=== PATIENT | male | born 1955 | race Caucasian/White ===

== ENCOUNTER → 2019-11-17 07:34 | Outpatient (CLI) | payer OTHER, SELFPAY ==
[2019-11-17 08:58] LABS: Chol/HDL Ratio 6.3 (1-3.5); Cholesterol 120 mg/dl (140-200); HDL Cholesterol 19 mg/dl (40-60); Triglycerides 246 mg/dl (30-150); VLDL Cholesterol 49 mg/dL (0-40)
[2019-11-17 09:09] LABS: Direct LDL Cholesterol 70.54 mg/dL (100-129)
[2019-11-18 05:16] LABS: Creatinine, Urine 121.9 mg/dL (Not Estab.); Microalbumin, Urine 18.5 ug/mL (Not Estab.)
[2019-11-18 17:47] LABS: Chloride 105 mmol/L (98-107); Sodium 138 mmol/L (136-145)
[2019-11-18 17:50] LABS: Blood Urea Nitrogen 17 mg/dl (9-20); Estimated Glomerular Filt Rate 97 ml/min (>60); GFR (African American) 117 ML/MIN (>60)
[2019-11-18 17:51] LABS: Carbon Dioxide 26 mmol/L (22.0-30.0); Glucose 193 mg/dl (74-100)
== END ==
PROVIDERS: Visit Provider Family Medicine
DX: I10 Essential (primary) hypertension (principal); M10.9 Gout, unspecified
CPT/HCPCS: 36415; 80048; 80061; 82043; 82570; 84443; 84550

== ENCOUNTER → 2019-11-22 14:31 | Outpatient (CLI) | payer MEDICARE, SELFPAY ==
[2019-11-24 10:00] LABS: PSA, Free 1.51 ng/mL
== END ==
PROVIDERS: Visit Provider Urology
DX: N40.0 Benign prostatic hyperplasia without lower urinary tract symptoms (principal)
CPT/HCPCS: 36415; 84153; 84154

== ENCOUNTER → 2019-11-29 07:07 | Outpatient (CLI) | payer MEDICARE, SELFPAY ==
[2019-11-29 08:06] LABS: Glucose,Random 186 mg/dL (74-100)
[2019-11-29 08:37] LABS: Hemoglobin A1C 7.8 % (4.0-6.0)
== END ==
PROVIDERS: Visit Provider Family Medicine
DX: R73.9 Hyperglycemia, unspecified (principal)
CPT/HCPCS: 36415; 82947; 83036

== ENCOUNTER → 2020-11-27 13:31 | Outpatient (CLI) | payer MEDICARE, SELFPAY ==
[2020-11-29 08:15] LABS: Prostate Specific Ag 3.9 ng/mL (0.0-4.0)
== END ==
PROVIDERS: Visit Provider Urology
DX: R97.20 Elevated prostate specific antigen [PSA] (principal)
CPT/HCPCS: 36415; 84153; 84154

== ENCOUNTER → 2021-04-29 14:30 | Outpatient (CLI) | payer MEDICARE, SELFPAY ==
[2021-04-29 14:59] LABS: Basophils # 0.1 K/mm3 (0-0.2); Basophils % 0.9 % (0.1-2.0); Eosinophils # 0.1 K/mm3 (0.0-0.4); Eosinophils % 1.3 % (0.1-12.0); Lymphocytes # 1.1 K/mm3 (0.7-4.5); Lymphocytes % 15.9 % (10-50); Mean Corpuscular HGB Conc 31.8 g/dL (31.8-35.4); Mean Corpuscular Hemoglobin 28.4 pg (27.0-31.2); Mean Corpuscular Volume 89.4 fl (80-94); Monocytes # 0.4 K/mm3 (0.1-1.0); Neutrophils # 5.3 K/mm3 (1.8-7.8); Neutrophils % 75.9 % (37.0-80.0); Platelet Count 201 K/mm3 (142-424); Red Blood Count 4.59 M/mm3 (4.60-6.20); Red Cell Distribution Width 16.9 % (11.5-17.5)
== END ==
PROVIDERS: Visit Provider Family Medicine
DX: Z20.822 Contact with and (suspected) exposure to COVID-19 (principal)
CPT/HCPCS: 36415; 85025; C9803; U0003; U0005

== ENCOUNTER 2021-05-25 13:55 | Emergency (ER) | payer MEDICARE, SELFPAY ==
[2021-05-25 14:15] VITALS: BP 148/88; PULSE 76; RESP 19; TEMP 36.8; O2SAT 98; BMI 29.5
--- NOTE | 2021-05-25 14:58 | HMH.EDUTC ---
[facility] [place] Disposition Clinical Impression: Sinusitis Qualifiers: Sinusitis location: unspecified location Chronicity: unspecified Qualified Code(s): J32.9 - Chronic sinusitis, unspecified Disposition: Home, Self-Care Condition on Discharge: Good Instructions: Sinusitis, DI for Sinusitis, Azithromycin Additional Instructions: *Monitor Temp, Over the counter Motrin or Tylenol as directed/as needed Tylenol every 4 hours and Motrin every 6 hours (as long as your family doctor has told you that you can take it) for fever or pain. and straight to ER if unable to lower temp less than 101.0 after medication given *Warm salt water gargles may help to soothe the throat *Throat Lozenges *Warm fluids like tea with honey may help to soothe the throat *Sleep elevated *Humidifier/Vaporizer *Flonase 2 sprays in each nostril daily but be aware that it may take 2-3 days before you notice improvement Take medication as prescribed Follow up IMMEDIATELY for new or worsening symptoms or no Noticeable improvement over the next 48-72 hours. 911 for difficulty breathing or swallowing Prescriptions: Fluticasone Propionate [Flonase 50mcg nasal spray 16gm] 1 spr NS DAILY #1 each Transmission Status: Received by [facility] # Azithromycin [Z-Dieudonne 250mg Tab] 250 mg PO DIRECTED #6 tab Transmission Status: Received by [facility] # Referrals: Toby Marcos MD [Primary Care Provider] - As needed Time of Disposition: 15:25 Medical Decision Making - Salazar Inquiry Pt receiving controlled substance: No Salazar was queried for this patient: No Vital Signs: 05/25/21 14:15 05/25/21 15:36 Temperature 98.3 F 98.3 F Temperature Source Oral Pulse Rate 76 Pulse Rate [Right Brachial] 76 Respiratory Rate 19 19 Blood Pressure 148/88 H Blood Pressure [Right Arm] 148/88 H Blood Pressure Mean [Right Arm] 108 Blood Pressure Source [Right Arm] Automatic Cuff Blood Pressure Position [Right Arm] Sitting 02 Sat by Pulse Oximetry 98 Oxygen Delivery Method Room Air Orders (Tests/Meds): ED MEDICATIONS Discontinued Medications Generic Name Dose Route Start Last Admin Trade Name Freq PRN Reason Stop Dose Admin Methylprednisolone Sodium Succinate 125 mg 05/25/21 15:21 05/25/21 15:35 Methylprednisolone Sod Succ 125mg Vial IM 05/25/21 15:22 125 mg ONCE ONE Administration Medical Decision Narrative: Patient state that he has taken Solu Medrol and azithromycin in the past without complications or reactions Patient state that he was put on Cefdinir by his PCP back about 3 weeks ago an he finished it but still having some sinus pressure and pain that has got worse over the last week [facility] [place] HPI - General Stated complaint: drainage, congestion Time Seen by Provider: 05/25/21 14:58 Mode of Arrival: Ambulatory Source of Information: Patient Limitations: No Limitations Description of Symptoms (Recalled from Triage Doc. by RN): PATIENT C/O SINUS PRESSURE, SCRATCHY THROAT AND COUGH X 3 WEEKS HEENT Symptoms (Recalled from RN notes): Yes Resp Symptoms (Recalled from RN notes): No Skin Symptoms (Recalled from RN notes): No MS Symptoms (Recalled from RN notes): No Functional Status (Recalled from RN notes): WNL - History of Present Illness Provider Complaint: Patient states that he has been having sinus pain and pressure along with cough for about 2 weeks States that he saw his PCP and they give him something but it did not clear it up States that it did help but then it returned as bad as it was in the beginning - Related Data Home Medications Medication Instructions Recorded Confirmed allopurinol 300 mg tablet 300 mg PO DAILY 11/22/19 05/25/21 losartan 100 mg tablet 100 mg PO DAILY 11/22/19 05/25/21 omeprazole 40 mg capsule,delayed 40 mg PO DAILY 11/22/19 05/25/21 release Pioglitazone HCl [Actos] 30 mg PO DAILY 05/25/21 05/25/21 Previous Rx's Medication Instructions Recorded Azithromycin
[2021-05-25 15:36] VITALS: BP 148/88; PULSE 76; RESP 19; TEMP 36.8; O2SAT 98
== END 2021-05-25 15:47 | disposition home or self-care (01) ==
PROVIDERS: Emergency Provider Nurse Practitioner; PCP Family Medicine
DX: J32.9 Chronic sinusitis, unspecified (principal); E11.9 Type 2 diabetes mellitus without complications
CPT/HCPCS: G0463; 96372; 99202

== ENCOUNTER 2021-07-29 18:57 | Emergency (ER) | payer MEDICARE, SELFPAY ==
[2021-07-29 19:50] VITALS: BP 141/86; PULSE 74; RESP 18; TEMP 37.1; O2SAT 98; BMI 33.6
--- NOTE | 2021-07-29 20:23 | HMH.EDUTC ---
[facility] [place] Disposition Clinical Impression: Sinusitis Qualifiers: Sinusitis location: unspecified location Chronicity: unspecified Qualified Code(s): J32.9 - Chronic sinusitis, unspecified Disposition: Home, Self-Care Condition on Discharge: Good Instructions: Sinusitis, DI for Sinusitis Additional Instructions: *Monitor Temp, Over the counter Motrin or Tylenol as directed/as needed Tylenol every 4 hours and Motrin every 6 hours (as long as your family doctor has told you that you can take it) for fever or pain. and straight to ER if unable to lower temp less than 101.0 after medication given *Warm salt water gargles may help to soothe the throat *Throat Lozenges *Warm fluids like tea with honey may help to soothe the throat *Sleep elevated *Humidifier/Vaporizer *Flonase 2 sprays in each nostril daily but be aware that it may take 2-3 days before you notice improvement Take medication as prescribed Follow up with Family Doctor if no improvement Follow up IMMEDIATELY for new or worsening symptoms or no Noticeable improvement over the next 48-72 hours. 911 for difficulty breathing or swallowing Prescriptions: Fluticasone Propionate [Flonase 50mcg nasal spray 16gm] 1 spr NS DAILY #1 each Transmission Status: Pending to [id number] Azithromycin [Z-Dieudonne 250mg Tab] 250 mg PO DIRECTED #6 tab Transmission Status: [id number] Referrals: Toby Marcos MD [Primary Care Provider] - As needed Time of Disposition: 20:45 Medical Decision Making - Salazar Inquiry Pt receiving controlled substance: No Salazar was queried for this patient: No Vital Signs: 07/29/21 19:50 07/29/21 20:40 Temperature 98.8 F 98.8 F Temperature Source Oral Pulse Rate 74 Pulse Rate [Right Brachial] 74 Respiratory Rate 18 18 Blood Pressure 141/86 H Blood Pressure [Right Arm] 141/86 H Blood Pressure Mean [Right Arm] 104 Blood Pressure Source [Right Arm] Automatic Cuff Blood Pressure Position [Right Arm] Sitting 02 Sat by Pulse Oximetry 98 Oxygen Delivery Method Room Air Orders (Tests/Meds): ED MEDICATIONS Discontinued Medications Generic Name Dose Route Start Last Admin Trade Name Freq PRN Reason Stop Dose Admin Methylprednisolone Sodium Succinate 125 mg 07/29/21 20:26 07/29/21 20:39 Methylprednisolone Sod Succ 125mg Vial IM 07/29/21 20:27 125 mg ONCE ONE Administration [facility] [place] HPI - General Stated complaint: sinus infection, R ear ache, itchy throat Time Seen by Provider: 07/29/21 20:23 Mode of Arrival: Ambulatory Source of Information: Patient Limitations: No Limitations Description of Symptoms (Recalled from Triage Doc. by RN): PATIENT C/O SINUS PRESSURE AND RIGHT EAR PAIN X 1 WEEK HEENT Symptoms (Recalled from RN notes): Yes Resp Symptoms (Recalled from RN notes): No Skin Symptoms (Recalled from RN notes): No MS Symptoms (Recalled from RN notes): No Functional Status (Recalled from RN notes): WNL - History of Present Illness Provider Complaint: Patient states that he has been having sinus pain and pressure for over a week and pain in his right ear States that as the week went on it continued to get worse States that today he was having pressure behind his eyes and pressure in sinuses was worse so he came in to get checked Denies exposure to COVID - Related Data Home Medications Medication Instructions Recorded Confirmed allopurinol 300 mg tablet 300 mg PO DAILY 11/22/19 07/29/21 losartan 100 mg tablet 100 mg PO DAILY 11/22/19 07/29/21 omeprazole 40 mg capsule,delayed 40 mg PO DAILY 11/22/19 07/29/21 release Pioglitazone HCl [Actos] 30 mg PO DAILY 05/25/21 07/29/21 Previous Rx's Medication Instructions Recorded Azithromycin [Z-Dieudonne 250mg Tab] 250 mg PO DIRECTED #6 tab 07/29/21 Fluticasone Propionate [Flonase 1 spr NS DAILY #1 each 07/29/21 50mcg nasal spray 16gm] Allergies Allergy/AdvReac Type Severity Reaction Status Date / Time No Known
[2021-07-29 20:40] VITALS: BP 141/86; PULSE 74; RESP 18; TEMP 37.1; O2SAT 98
== END 2021-07-29 20:59 | disposition home or self-care (01) ==
PROVIDERS: Emergency Provider Nurse Practitioner; PCP Family Medicine
DX: J32.9 Chronic sinusitis, unspecified (principal); E11.9 Type 2 diabetes mellitus without complications
CPT/HCPCS: G0463; 96372; 99202

== ENCOUNTER → 2021-12-25 07:24 | Outpatient (CLI) | payer MEDICARE, SELFPAY ==
[2021-12-25 09:35] LABS: Alanine Aminotransferase 50 U/L (12-78); Albumin Level 4.3 g/dl (3.5-5.0); Albumin/Globulin Ratio 1.7 (1.1-1.8); Alkaline Phosphatase 78 U/L (38-126); Anion Gap 12.6 mEq/L (5-15); Aspartate Amino Transferase 52 U/L (17-59); Bilirubin,Total 0.9 mg/dl (0.2-1.3); Blood Urea Nitrogen 21 mg/dl (9-20); Calcium 9.5 mg/dl (8.4-10.2); Carbon Dioxide 28 mmol/L (22.0-30.0); Chloride 106 mmol/L (98-107); Chol/HDL Ratio 7.7 (1-3.5); Cholesterol 147 mg/dl (140-200); Estimated Glomerular Filt Rate 84 ml/min (>60); GFR (African American) 102 ML/MIN (>60); Globulin 2.6 g/dL (1.3-3.2); Glucose 147 mg/dl (74-100); HDL Cholesterol 19 mg/dl (40-60); Potassium 4.6 mmoL/L (3.5-5.1); Sodium 142 mmol/L (136-145); Total Protein,Serum 6.9 g/dl (6.3-8.2); Triglycerides 190 mg/dl (30-150); Uric Acid 4.9 mg/dl (3.5-8.5); VLDL Cholesterol 38 mg/dL (0-40)
[2021-12-25 09:45] LABS: Direct LDL Cholesterol 69.99 mg/dL (100-129)
== END ==
PROVIDERS: PCP Family Medicine; Visit Provider Family Medicine
DX: E11.9 Type 2 diabetes mellitus without complications (principal); I10 Essential (primary) hypertension; E79.0 Hyperuricemia without signs of inflammatory arthritis and tophaceous disease
CPT/HCPCS: 36415; 80053; 80061; 82043; 83036; 84550

== ENCOUNTER → 2021-12-31 19:07 | Outpatient (CLI) | payer MEDICARE, SELFPAY | PROVIDERS: PCP Family Medicine; Visit Provider Internal Medicine Gastroenterology | DX: Z01.812 Encounter for preprocedural laboratory examination (principal); Z20.822 Contact with and (suspected) exposure to COVID-19; Z12.11 Encounter for screening for malignant neoplasm of colon | CPT/HCPCS: C9803; U0003; U0005 ==

== ENCOUNTER 2022-01-02 09:50 | Day surgery (SDC) | payer MEDICARE, SELFPAY ==
[2022-01-02 10:33] VITALS: BP 153/89; PULSE 62; RESP 17; TEMP 36.8; O2SAT 94; BMI 29.5
[2022-01-02 10:43] LABS: POC Glucose,Bedside 144 (70-110)
[2022-01-02 10:53] VITALS: O2SAT 94
--- NOTE | 2022-01-02 10:53 | P.PN_ITS ---
[facility] Anesthesia Checklist - Patient Identification Patient Identification: Arm Band - Structural Data Admitted From: Home Planned Operative Procedure/s: colonoscopy Consent for Planned Operative Procedure(s) Verified: Yes Verified Documents: Surgical Consent, History and Physical - NPO Status Verified Time NPO: 00:00 - Additional verifications Anesthesia Reactions: No - Airway Assessment C-Spine Mobility Assessed: Yes (mp2) TMJ Mobility Assessed: Yes Dentition: Good Dentition - Neurological Assessment Level of Consciousness: Awake, Alert - Anesthesia Plan Anesthesia Risk discussed: Yes Anesthesia Plan: Verified ASA Class: II Anesthesia Type: MAC [facility] History I have reviewed the patient's past medical history: Yes 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: Reports:: Cancer, Diabetes Mellitus Type 2, Gall Bladder Disease, Hyperlipidemia, Hypertension Denies:: Diabetes Mellitus Type 1, Internal Pacemaker, MRSA, Seizures *Have you ever received a pneumonia vaccine?: Yes *Have you received a flu vaccine this season?: Yes Anesthesia experience/problems:: nac Other Surgeries: Yes: Appendectomy, Other. No: Pacemaker Amputation: No Fractures: No - *Social History Last grade of school completed: Advanced degree Smoking Status: Never smoker Alcohol Intake: never Alcohol Intake Frequency:: a few times a month Substance Use Type: denies use *Occupational Status:: retired Housing: house Household Members: significant other *Travel in the last 8 weeks: Inside the [place] Family Hx:: Cancer, Hyperlipidemia, Hypertension, Coronary Artery Disease
[2022-01-02 11:08] VITALS: BP 122/68; PULSE 58; RESP 18; TEMP 36.6; O2SAT 92
--- NOTE | 2022-01-02 11:08 | HMH.SCOPE ---
- Procedure: Date: 01/02/22 Patient Date of :: 1955 Procedure Performed:: Screening colonoscopy Indications:: Family history of colon cancer Performing Provider:: Tim Cordon MD Referring Provider:: Blaine Nichols Sedation:: Propofol Procedure:: After placing the patient in the left lateral decubitus position, the colonoscopy was gently inserted into the rectum and under direct visualization advanced to the cecum which was identified by transillumination in the right lower quadrant, identification of the ileocecal valve, appendiceal orifice, and cecal strap. Color, texture, mucosa, and anatomy of the colon were carefully examined with the scope. Findings:: Anal canal: normal Rectum: normal Sigmoid colon: normal without polyps or inflammatory changes Descending colon: normal without polyps or inflammatory changes Splenic flexure: normal Transverse colon: normal without polyps or inflammatory changes Hepatic flexure: normal Ascending colon: normal without polyps or inflammatory changes Cecum: normal Terminal ileum: not visualized Impression: Normal colonoscopy Recommendations:: Repeat screening examination in about FIVE years or so in view of family history Complications:: None Estimated blood obtained (mL): 0
[2022-01-02 11:18] VITALS: BP 119/67; PULSE 57; RESP 18; O2SAT 92
[2022-01-02 11:27] VITALS: BP 118/75; PULSE 55; RESP 18; O2SAT 94
[2022-01-02 11:38] VITALS: BP 131/75; PULSE 55; RESP 18; O2SAT 95
== END 2022-01-02 11:47 | disposition home or self-care (01) ==
LOC: OUTP 09:51
PROVIDERS: PCP Family Medicine; Visit Provider Internal Medicine Gastroenterology
PROC: 0DJD8ZZ Inspection of Lower Intestinal Tract, Via Natural or Artificial Opening Endoscopic (ICD-10-PCS; CPT 45378; principal; 2022-01-02 11:00)
DX: Z12.11 Encounter for screening for malignant neoplasm of colon (principal); Z80.0 Family history of malignant neoplasm of digestive organs; E11.9 Type 2 diabetes mellitus without complications; I10 Essential (primary) hypertension; E78.5 Hyperlipidemia, unspecified; K82.9 Disease of gallbladder, unspecified
CPT/HCPCS: G0105; 82962

== ENCOUNTER 2022-06-07 09:08 | Emergency (ER) | payer MEDICARE, SELFPAY ==
[2022-06-07 09:15] VITALS: BP 162/94; PULSE 70; RESP 21; TEMP 37; O2SAT 95; BMI 30.3
[2022-06-07 09:29] VITALS: BP 162/94; PULSE 70; RESP 21; TEMP 37; O2SAT 95
--- NOTE | 2022-06-07 09:29 | EXP.UTC ---
Discharge Plan Disposition Patient Disposition: Home, Self-Care Prescriptions Prescriptions: New azithromycin [azithromycin] 250 mg tablet 250 mg PO DIRECTED Qty: 6 0RF Rx Instructions: Take two (2) tablets on day #1, then one (1) tablet day #2 thru #5 fluticasone propionate [fluticasone propionate] 50 mcg/actuation spray,suspension 1 spray intranasal DAILY Qty: 9.9 0RF Rx Instructions: 1 spray each nostril daily No Action omeprazole 40 mg capsule,delayed release(DR/EC) 40 mg PO DAILY allopurinol 300 mg tablet 300 mg PO DAILY peg 3350-electrolytes [GaviLyte-G] 236-22.74-6.74 -5.86 gram recon soln 240 ml PO Q10M Qty: 4000 0RF Rx Instructions: see mailed instructions pioglitazone 30 MG tablet 30 mg PO DAILY irbesartan 300 MG tablet 300 mg PO DAILY meloxicam 15 MG tablet 15 mg PO DAILY Referrals Follow up/Referrals: Blaine Nichols MD [Primary Care Provider] - See instructions Activity Restrictions/Add. Instructions Additional Instructions/Restrictions: Start antibiotic patient to take as ordered for a full length of time even if you feel better. Sinus infections do not get better overnight. It may take 2-3 days to notice much improvement so be sure to use conservative measures as discussed for symptoms. Flonase 1 spray each nostril daily to help with nasal congestion, sinus and ear pressure/information Increase fluids Humidifier/vaporizer as needed Tylenol and ibuprofen as needed for fever or pain. If symptoms do not improve or get worse return or be seen in the ER Follow-up with primary care this week Clinical Impressions Clinical Impression: Sinusitis Instructions Patient Instructions: DI for Sinusitis Discharge ED Provider: Sam ([facility])[place] [facility] [place] General Stated complaint: sore throat, GOMEZ, congestion Mode of Arrival: Ambulatory Source of Information: Patient Limitations: No Limitations Time Seen by Provider: 06/07/22 09:29 Description of Symptoms (Recalled from Triage Doc. by RN): PATIENT C/O SINUS PRESSURE AND DRAINAGE SINCE THURSDAY HEENT Symptoms (Recalled from RN notes): Yes Resp Symptoms (Recalled from RN notes): No Skin Symptoms (Recalled from RN notes): No MS Symptoms (Recalled from RN notes): No Functional Status (Recalled from RN notes): WNL History of Present Illness Provider Complaint: 66 yr old male presents for sinus pressure, tenderness, changing color of drainage and hoarseness. pt states he has been battling this all week with otc meds but it seems to be getting worse instead of better and now the drainage is changing colors Related Data Home Medications Medication Instructions Recorded Confirmed allopurinol 300 mg tablet 300 mg PO DAILY GOUT 11/22/19 05/12/22 omeprazole 40 mg capsule,delayed 40 mg PO DAILY GERD 11/22/19 05/12/22 release pioglitazone 30 mg tablet 30 mg PO DAILY Diabetes 05/25/21 05/12/22 irbesartan 300 mg tablet 300 mg PO DAILY HTN 01/02/22 05/12/22 meloxicam 15 mg tablet 15 mg PO DAILY . 01/02/22 05/12/22 Previous Rx's Medication Instructions Recorded peg 3350-electrolytes 236 240 ml PO Q10M Colonoscopy #4,000 12/26/21 gram-22.74 gram-6.74 gram-5.86 mL gram solution (GaviLyte-G) azithromycin 250 mg tablet 250 mg PO DIRECTED #6 tabs 06/07/22 fluticasone propionate 50 1 spray intranasal DAILY #9.9 mL 06/07/22 mcg/actuation nasal spray,suspension Allergies Allergy/AdvReac Type Severity Reaction Status Date / Time No Known Allergies Allergy Verified 05/12/22 13:09 Worker's Comp Is this a Worker's Comp case?: No [facility] Disclaimer: The information contained in this section may have been updated after the patient was seen, as this information can be updated by other users. 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
== END 2022-06-07 09:41 | disposition home or self-care (01) ==
PROVIDERS: Emergency Provider Nurse Practitioner Family; PCP Family Medicine
DX: J32.9 Chronic sinusitis, unspecified (principal)
CPT/HCPCS: 99212; G0463

== ENCOUNTER 2022-06-26 10:14 | Emergency (ER) | payer MEDICARE, SELFPAY ==
[2022-06-26 10:25] VITALS: BP 138/86; PULSE 77; RESP 18; TEMP 36.7; O2SAT 99; BMI 33.3
--- NOTE | 2022-06-26 10:48 | EXP.UTC ---
Discharge Plan Disposition Patient Disposition: Home, Self-Care Condition: Good Prescriptions Prescriptions: New cefdinir 300 mg capsule 300 mg PO BID Qty: 20 0RF No Action omeprazole 40 mg capsule,delayed release(DR/EC) 40 mg PO DAILY allopurinol 300 mg tablet 300 mg PO DAILY peg 3350-electrolytes [GaviLyte-G] 236-22.74-6.74 -5.86 gram recon soln 240 ml PO Q10M Qty: 4000 0RF Rx Instructions: see mailed instructions pioglitazone 30 MG tablet 30 mg PO DAILY irbesartan 300 MG tablet 300 mg PO DAILY meloxicam 15 MG tablet 15 mg PO DAILY azithromycin [azithromycin] 250 mg tablet 250 mg PO DIRECTED Qty: 6 0RF Rx Instructions: Take two (2) tablets on day #1, then one (1) tablet day #2 thru #5 fluticasone propionate [fluticasone propionate] 50 mcg/actuation spray,suspension 1 spray intranasal DAILY Qty: 9.9 0RF Rx Instructions: 1 spray each nostril daily Referrals Follow up/Referrals: Blaine Nichols MD [Primary Care Provider] - See instructions Clinical Impressions Clinical Impression: Sinusitis Qualifiers: Sinusitis location: unspecified location Chronicity: unspecified Qualified Code(s): J32.9 - Chronic sinusitis, unspecified Otitis media Qualifiers: Otitis media type: unspecified Laterality: right Qualified Code(s): H66.91 - Otitis media, unspecified, right ear Instructions Patient Instructions: Middle Ear Infection, DI for Sinusitis, Cefdinir Discharge ED Provider: Shereen Moran [facility] [place] HPI General Stated complaint: sore throat, Rt ear pain Mode of Arrival: Ambulatory Source of Information: Patient Limitations: No Limitations Time Seen by Provider: 06/26/22 10:48 Description of Symptoms (Recalled from Triage Doc. by RN): PATIENT C/O SCRATCHY THROAT, RIGHT EAR ACHE, AND SINUS DRAINAGE X 3 DAYS HEENT Symptoms (Recalled from RN notes): Yes Resp Symptoms (Recalled from RN notes): No Skin Symptoms (Recalled from RN notes): No MS Symptoms (Recalled from RN notes): No Functional Status (Recalled from RN notes): WNL History of Present Illness Provider Complaint: Patient states that he had a sinus infection a couple weeks ago and took a zpack but didnt help it much and now it is back and worse than it was States that he is also having pain in his right ear and feels full States that today the pressure in his sinuses was worse so he came back in Related Data Home Medications Medication Instructions Recorded Confirmed allopurinol 300 mg tablet 300 mg PO DAILY GOUT 11/22/19 05/12/22 omeprazole 40 mg capsule,delayed 40 mg PO DAILY GERD 11/22/19 05/12/22 release pioglitazone 30 mg tablet 30 mg PO DAILY Diabetes 05/25/21 05/12/22 irbesartan 300 mg tablet 300 mg PO DAILY HTN 01/02/22 05/12/22 meloxicam 15 mg tablet 15 mg PO DAILY . 01/02/22 05/12/22 Previous Rx's Medication Instructions Recorded peg 3350-electrolytes 236 240 ml PO Q10M Colonoscopy #4,000 12/26/21 gram-22.74 gram-6.74 gram-5.86 mL gram solution (GaviLyte-G) azithromycin 250 mg tablet 250 mg PO DIRECTED #6 tabs 06/07/22 fluticasone propionate 50 1 spray intranasal DAILY #9.9 mL 06/07/22 mcg/actuation nasal spray,suspension cefdinir 300 mg capsule 300 mg PO BID #20 caps 06/26/22 Allergies Allergy/AdvReac Type Severity Reaction Status Date / Time No Known Allergies Allergy Verified 05/12/22 13:09 Worker's Comp Is this a Worker's Comp case?: No [facility] Disclaimer: The information contained in this section may have been updated after the patient was seen, as this information can be updated by other users. 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
[2022-06-26 11:08] VITALS: BP 138/86; PULSE 77; RESP 18; TEMP 36.7; O2SAT 99
== END 2022-06-26 11:21 | disposition home or self-care (01) ==
PROVIDERS: Emergency Provider Nurse Practitioner; PCP Family Medicine
DX: J32.9 Chronic sinusitis, unspecified (principal); H66.91 Otitis media, unspecified, right ear
CPT/HCPCS: 96372; 99212; G0463

== ENCOUNTER 2023-01-21 19:43 | Emergency (ER) | payer MEDICARE, SELFPAY ==
[2023-01-21 19:44] VITALS: BP 142/87; PULSE 68; RESP 16; TEMP 36.7; O2SAT 98; BMI 28.8
--- NOTE | 2023-01-21 19:53 | XR_ITS ---
PROCEDURE INFORMATION: Exam: XR Left Knee Exam date and time: 01/21/2023 7:54 PM Age: 67 years old Clinical indication: Pain; Patient HX: PT states he stepped wrong and felt a pop in left knee; Additional info: Accident TECHNIQUE: Imaging protocol: Radiologic exam of the left knee. Views: 3 views. COMPARISON: No relevant prior studies available. FINDINGS: Bones/joints: Mild patellofemoral compartment arthritic changes. Alignment anatomic. Trace knee joint effusion. No acute osseous injury. Soft tissues: Normal. IMPRESSION: No acute findings.
[2023-01-21 20:00] VITALS: BP 144/96; PULSE 74; O2SAT 94
--- NOTE | 2023-01-21 20:00 | PC.NURSE ---
pt to rad
--- NOTE | 2023-01-21 20:07 | PC.NURSE ---
pt returned from rad
--- NOTE | 2023-01-21 20:13 | PC.NURSE ---
Pt requests an advil for pain, will make MD aware. No other needs voiced.
--- NOTE | 2023-01-21 20:15 | PC.NURSE ---
will be placing order for pain meds
--- NOTE | 2023-01-21 20:22 | HMH.EDGENADL ---
Discharge Plan Disposition Patient Disposition: Home, Self-Care Chief Complaint: Extremity Injury, Lower Prescriptions Prescriptions: No Action omeprazole 40 mg capsule,delayed release(DR/EC) 40 mg PO DAILY allopurinol 300 mg tablet 300 mg PO DAILY peg 3350-electrolytes [GaviLyte-G] 236-22.74-6.74 -5.86 gram recon soln 240 ml PO Q10M Qty: 4000 0RF Rx Instructions: see mailed instructions pioglitazone 30 MG tablet 30 mg PO DAILY irbesartan 300 MG tablet 300 mg PO DAILY meloxicam 15 MG tablet 15 mg PO DAILY cefdinir 300 mg capsule 300 mg PO BID Qty: 20 0RF azithromycin [azithromycin] 250 mg tablet 250 mg PO DIRECTED Qty: 6 0RF Rx Instructions: Take two (2) tablets on day #1, then one (1) tablet day #2 thru #5 fluticasone propionate [fluticasone propionate] 50 mcg/actuation spray,suspension 1 spray intranasal DAILY Qty: 9.9 0RF Rx Instructions: 1 spray each nostril daily Referrals Follow up/Referrals: Blaine Nichols MD [Primary Care Provider] - See instructions Faustino Mcgill DO [Staff Physician] - See instructions (Partial patellar tendon rupture on x-ray and ultrasound 01/21) Activity Restrictions/Add. Instructions Additional Instructions/Restrictions: Daily baby aspirin as discussed. Clinical Impressions Clinical Impression: Non-traumatic rupture of left patellar tendon Discharge ED Provider: Ace Anderson General Adult HPI General Chief complaint: Extremity Injury, Lower Stated complaint: AO LT knee injury, 01/21 Time Seen by Provider: 01/21/23 19:46 Mode of Arrival: Wheelchair Source of Information: Patient Limitations: No Limitations Description of Symptoms (Recalled from ER Triage Doc. by RN): pt states was helping daugter moving and missed step and felt a pop in lt knee. pt c/o lt knee pain and unable to bear weight. History of Present Illness HPI narrative: Is a 67-year-old male with history of hypertension, hyperlipidemia, gout, diabetes presenting with left knee pain. Patient states that just prior to arrival, he was helping family member move, missed a step, and felt a pop in his left knee. Largely unable to bear weight at this time. Denies twisting, any other trauma, numbness, tingling, weakness, or any other concerns. Pain is severe, does not radiate. Related Data Home Medications Medication Instructions Recorded Confirmed allopurinol 300 mg tablet 300 mg PO DAILY GOUT 11/22/19 05/12/22 omeprazole 40 mg capsule,delayed 40 mg PO DAILY GERD 11/22/19 05/12/22 release pioglitazone 30 mg tablet 30 mg PO DAILY Diabetes 05/25/21 05/12/22 irbesartan 300 mg tablet 300 mg PO DAILY HTN 01/02/22 05/12/22 meloxicam 15 mg tablet 15 mg PO DAILY . 01/02/22 05/12/22 Previous Rx's Medication Instructions Recorded peg 3350-electrolytes 236 240 ml PO Q10M Colonoscopy #4,000 12/26/21 gram-22.74 gram-6.74 gram-5.86 mL gram solution (GaviLyte-G) azithromycin 250 mg tablet 250 mg PO DIRECTED #6 tabs 06/07/22 fluticasone propionate 50 1 spray intranasal DAILY #9.9 mL 06/07/22 mcg/actuation nasal spray,suspension cefdinir 300 mg capsule 300 mg PO BID #20 caps 06/26/22 Allergies Allergy/AdvReac Type Severity Reaction Status Date / Time No Known Allergies Allergy Verified 05/12/22 13:09 [facility] Disclaimer: The information contained in this section may have been updated after the patient was seen, as this information can be updated by other users. 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
[2023-01-21 20:30] VITALS: BP 163/94; PULSE 64; O2SAT 95
--- NOTE | 2023-01-21 20:56 | PC.NURSE ---
checked on pt nothing needed at this time,call light at [facility]
[2023-01-21 21:01] VITALS: BP 154/96; PULSE 75; O2SAT 96
[2023-01-21 21:30] VITALS: BP 166/98; PULSE 72; O2SAT 95
--- NOTE | 2023-01-21 21:48 | PC.NURSE ---
Dr. Anderson at [facility]
[2023-01-21 22:16] VITALS: BP 151/74; PULSE 67; RESP 16; TEMP 36.7; O2SAT 96
== END 2023-01-21 22:17 | disposition home or self-care (01) ==
PROVIDERS: Emergency Provider Emergency Medicine; PCP Family Medicine
DX: S86.812A Strain of other muscle(s) and tendon(s) at lower leg level, left leg, initial encounter (principal); W10.8XXA Fall (on) (from) other stairs and steps, initial encounter; I10 Essential (primary) hypertension; E78.5 Hyperlipidemia, unspecified; E11.9 Type 2 diabetes mellitus without complications; M10.9 Gout, unspecified
CPT/HCPCS: 73562; 96372; 99283

== ENCOUNTER 2023-03-03 08:48 | Emergency (ER) | payer MEDICARE, SELFPAY ==
[2023-03-03 08:48] VITALS: BP 179/96; PULSE 69; RESP 18; TEMP 36.8; O2SAT 95; BMI 28.8
--- NOTE | 2023-03-03 09:09 | EXP.UTC ---
Discharge Plan Disposition Patient Disposition: Home, Self-Care Condition: Good Prescriptions Prescriptions: New benzonatate [benzonatate] 100 mg capsule 100 mg PO TIDP PRN (Reason: Cough) Qty: 30 0RF methylprednisolone 4 mg Tablets,Dose Pack 4 mg PO DIRECTED Qty: 21 0RF amoxicillin-pot clavulanate 875-125 mg Tablet 1 tab PO Q12H Qty: 20 0RF No Action omeprazole 40 mg capsule,delayed release(DR/EC) 40 mg PO DAILY allopurinol 300 mg tablet 300 mg PO DAILY pioglitazone 30 MG tablet 30 mg PO DAILY irbesartan 300 MG tablet 300 mg PO DAILY meloxicam 15 MG tablet 15 mg PO DAILY fluticasone propionate [fluticasone propionate] 50 mcg/actuation spray,suspension 1 spray intranasal DAILY Qty: 9.9 0RF Rx Instructions: 1 spray each nostril daily Referrals Follow up/Referrals: Blaine Nichols MD [Primary Care Provider] - See instructions Activity Restrictions/Add. Instructions Additional Instructions/Restrictions: Drink plenty of fluids. Take tylenol or ibuprofen for pain or fever. Take the medications as directed. Follow up with your regular doctor. GO TO THE ER FOR ANY WORSENING SYMPTOMS Don't start the oral steroids until tomorrow, since you had the shot here today. Clinical Impressions Clinical Impression: Sinusitis Instructions Patient Instructions: Sinusitis, DI for Sinusitis, Ceftriaxone Injection, Methylprednisolone Injection Discharge ED Provider: Nuno Harman [facility] [place] HPI General Stated complaint: head congestion,sore throat Time Seen by Provider: 03/03/23 09:08 History of Present Illness Provider Complaint: He states that for the past 1 week he has had worsening sinus congestion and bilateral ear pressure. He denies chest congestion. He denies shortness of breath. He refuses covid-19 testing today. Related Data Home Medications Medication Instructions Recorded Confirmed allopurinol 300 mg tablet 300 mg PO DAILY GOUT 11/22/19 03/03/23 omeprazole 40 mg capsule,delayed 40 mg PO DAILY GERD 11/22/19 03/03/23 release pioglitazone 30 mg tablet 30 mg PO DAILY Diabetes 05/25/21 03/03/23 irbesartan 300 mg tablet 300 mg PO DAILY HTN 01/02/22 03/03/23 meloxicam 15 mg tablet 15 mg PO DAILY . 01/02/22 05/12/22 Previous Rx's Medication Instructions Recorded fluticasone propionate 50 1 spray intranasal DAILY #9.9 mL 06/07/22 mcg/actuation nasal spray,suspension amoxicillin 875 mg-potassium 1 tab PO Q12H #20 tabs 03/03/23 clavulanate 125 mg tablet benzonatate 100 mg capsule 100 mg PO TIDP PRN Cough #30 caps 03/03/23 methylprednisolone 4 mg tablets in 4 mg PO DIRECTED #21 tabs 03/03/23 a dose pack Allergies Allergy/AdvReac Type Severity Reaction Status Date / Time No Known Allergies Allergy Verified 03/03/23 09:20 [facility] Disclaimer: The information contained in this section may have been updated after the patient was seen, as this information can be updated by other users. 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
[2023-03-03 10:20] VITALS: BP 128/82; PULSE 72; RESP 18; TEMP 37; O2SAT 100
== END 2023-03-03 09:56 | disposition home or self-care (01) ==
PROVIDERS: Emergency Provider Nurse Practitioner Family; PCP Family Medicine
DX: J01.90 Acute sinusitis, unspecified (principal); E11.9 Type 2 diabetes mellitus without complications; I10 Essential (primary) hypertension; K21.9 Gastro-esophageal reflux disease without esophagitis; Z79.84 Long term (current) use of oral hypoglycemic drugs
CPT/HCPCS: 96372; 99212; 99214; G0463; J0696

== ENCOUNTER 2024-03-08 16:41 | Emergency (ER) | payer MEDICARE, SELFPAY ==
[2024-03-08 17:40] VITALS: BP 153/79; PULSE 67; RESP 20; TEMP 37.7; O2SAT 97; BMI 27.3
--- NOTE | 2024-03-08 17:57 | ED_ITS ---
Discharge Plan Disposition Patient Disposition: Home, Self-Care Condition: Good Prescriptions Prescriptions: New azithromycin [Zithromax Z-Dieudonne] 250 mg tablet See Rx Instructions .ROUTE .COMPLEX 5 Days Qty: 6 0RF Rx Instructions: For 250 mg dose pack: take 500 mg today (day 1), then 250 mg for 4 days (days 2-5) methylprednisolone [Medrol (Dieudonne)] 4 mg tablets,dose pack See Rx Instructions .Route .COMPLEX 6 Days Qty: 21 0RF Rx Instructions: taper pack; guaifenesin [Mucinex] 600 mg tablet extended release 12hr 600 - 1,200 mg PO BID PRN (Reason: cough) Qty: 20 0RF No Action omeprazole 40 mg capsule,delayed release(DR/EC) 40 mg PO DAILY allopurinol 300 mg tablet 300 mg PO DAILY irbesartan 300 MG tablet 300 mg PO DAILY tadalafil 10 mg Tablet 10 mg PO DAILY PRN (Reason: .) Rx Instructions: administer approximately 30min before sexual activity; do not use more than 1 dose per 24hrs dapaglifloz propaned-metformin [Xigduo XR] 10-1,000 mg tablet, IR - ER, biphasic 24hr 1 tab PO DAILY Referrals Follow up/Referrals: Blaine Nichols MD [Primary Care Provider] - See instructions Activity Restrictions/Add. Instructions Additional Instructions/Restrictions: *Monitor Temp, Over the counter Motrin or Tylenol as directed/as needed Tylenol every 4 hours and Motrin every 6 hours (as long as your family doctor has told you that you can take it) for fever or pain. and straight to ER if unable to lower temp less than 101.0 after medication given *Warm salt water gargles may help to soothe the throat *Throat Lozenges? *Warm fluids like tea with honey may help to soothe the throat? *Sleep elevated *Humidifier/Vaporizer Start oral steriods and antibiotics tomorrow Follow up IMMEDIATELY for new or worsening symptoms or no Noticeable improvement over the next 48-72 hours. 911 for difficulty breathing or swallowing Clinical Impressions Clinical Impression: Sinusitis Qualifiers: Sinusitis location: unspecified location Chronicity: unspecified Qualified Code(s): J32.9 - Chronic sinusitis, unspecified Instructions Patient Instructions: Sinusitis, DI for Sinusitis Print Language Print Language: Ecuadorean Discharge ED Provider: Shereen Moran [facility] General Stated complaint: Drainage pressure head & checks,dry cough Mode of Arrival: Ambulatory Source of Information: Patient Limitations: No Limitations Time Seen by Provider: 03/08/24 17:57 Description of Symptoms (Recalled from Triage Doc. by RN): PATIENT C/O SINUS PRESSURE AND DRAINAGE AND RIGHT EAR PAIN SINCE YESTERDAY HEENT Symptoms (Recalled from RN notes): Yes Resp Symptoms (Recalled from RN notes): No Skin Symptoms (Recalled from RN notes): No MS Symptoms (Recalled from RN notes): No Functional Status (Recalled from RN notes): WNL History of Present Illness Provider Complaint: Patient states that he gets sinus infections about this time every year States he has been having pain in his right ear on and off and sinus congestion but got worse since yesterday so today when it was still no better he came in to get it checked Related Data Home Medications ?Medication ?Instructions ?Recorded ?Confirmed allopurinol 300 mg tablet 300 mg PO DAILY GOUT 11/22/19 03/08/24 omeprazole 40 mg capsule,delayed 40 mg PO DAILY GERD 11/22/19 03/08/24 release irbesartan 300 mg tablet 300 mg PO DAILY HTN 01/02/22 03/08/24 dapagliflozin propaned 10 1 tab PO DAILY 03/08/24 03/08/24 mg-metformin ER 1,000 mg tablet,ext rel 24hr (Xigduo XR) tadalafil 10 mg tablet 10 mg PO DAILY PRN . 03/08/24 03/08/24 Previous Rx's ?Medication ?Instructions ?Recorded azithromycin 250 mg tablet See Rx Instructions PO .COMPLEX 5 03/08/24 (Zithromax Z-Dieudonne) days #6 tabs guaifenesin 600 mg tablet, 600 - 1,200 mg (1 - 2 x 600 mg) PO 03/08/24 extended release 12 hr (Mucinex) BID PRN cough #20 tabs methylprednisolone 4 mg tablets in See Rx Instructions .Route 03/08/24 a dose pack (Medrol (Dieudonne)) .COMPLEX 6 days #21 tabs Allergies Allergy/AdvReac Type Severity Reaction Status Date / Time No Known Allergies Allergy Verified 03/03/23 09:20 Worker's Comp Is this a Worker's Comp case?: No [facility] Disclaimer: The information contained in this section may have been updated after the patient was seen, as this information can be updated by other users. 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) Diabetes Coronary artery disease Hypertension Social History Smoking Status: Never smoker alcohol intake: never substance use type: denies use current occupational status: retired Travel in the last 8 weeks: Inside the [place] household members: significant other housing: house caffeine: Yes ROS Obtained: Yes All systems reviewed & no additional complaints except as documented and Yes Systems reviewed as appropriate & no additional complaints except as documented Constitutional Constitutional: Reports system reviewed and no additional complaints, except as documented, Reports as per HPI and Reports headache(s) ENT Ears, Nose, Mouth, and Throat: Reports system reviewed and no additional complaints, except as documented, Reports as per HPI, Reports otalgia, Reports headache(s), Reports sinus pain and Reports sinus pressure Cardiovascular Cardiovascular: Reports system reviewed and no additional complaints, except as documented and Reports as per HPI Respiratory Respiratory: Reports system reviewed and no additional complaints, except as documented and Reports as per HPI Gastrointestinal Gastrointestingal: Reports system reviewed and no additional complaints, except as documented and as per HPI Musculoskeletal Musculoskeletal: Reports system reviewed and no additional complaints, except as documented and Reports as per HPI Neurologic Neurologic: Reports headache(s) Physical Exam General General appearance: alert and in no apparent distress ENT ENT exam: Present mucous membranes moist Expanded ENT Exam TM/Canal exam: Right TM: erythema and Bilateral TM: bulging Nose exam: Present sinus tenderness Throat exam: Present other (PND noted) Respiratory Respiratory exam: Present normal lung sounds bilaterally; Absent respiratory distress or wheezes Cardiovascular Cardiovascular exam: Present regular rate, normal rhythm and normal heart sounds Neurological Exam Neurological exam: Present alert, oriented X3 and normal gait Medical Decision Making Salazar Inquiry Pt receiving controlled substance: No Salazar was queried for this patient: No Vital Signs: 03/08/24 17:40 Temperature 99.8 F H Temperature Source Oral Pulse Rate [Left Brachial] 67 Respiratory Rate 20 Blood Pressure [Left Arm] 153/79 H Blood Pressure Mean [Left Arm] 103 Blood Pressure Source [Left Arm] Automatic Cuff Blood Pressure Position [Left Arm] Sitting 02 Sat by Pulse Oximetry 97 Oxygen Delivery Method Room Air Medical Decision Narrative: Patient is a diabetic but has taken SoluMedrol and steriods in the past without complications or increasing blood sugars
[2024-03-08] MEDS: LIDOCAINE 1% 5ML PF VIAL IM (18:14)
[2024-03-08] MEDS: METHYLPREDNISOLONE SOD SUCC 125MG VIAL 125 MG IM (18:14)
[2024-03-08] MEDS: cefTRIAXone 1GM VIAL 1 GM IM (18:14)
[2024-03-08 18:15] VITALS: BP 153/79; PULSE 67; RESP 20; TEMP 37.7; O2SAT 97
== END 2024-03-08 18:26 | disposition home or self-care (01) ==
PROVIDERS: Emergency Provider Nurse Practitioner; PCP Family Medicine
DX: J01.90 Acute sinusitis, unspecified (principal); H92.01 Otalgia, right ear
CPT/HCPCS: 96372; 99212; 99214; G0463; J0696; J2919

== ENCOUNTER 2024-05-13 09:46 | Outpatient (CLI) | payer BC, MEDICARE, SELFPAY ==
--- NOTE | 2024-05-13 | CA_ITS ---
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 HR Resting HR: 69 bpm Max Heart Rate (APMHR): 151.791666 bpm Max HR Achieved: 137 bpm Target HR (85% APMHR): 128.711892 bpm % of APMHR: 90.73 Recovery HR: 87 bpm BP Resting BP: 156.0/81.0 mmHg Max BP: 191.0/89.0 mmHg Recovery BP: 143.0/84.0 mmHg ECG Clinical Highest Stage Achieved: Stage 2: 2.5 mph at 12% grade. Stress ECG Conclusion Pt exercised 5:32 on John protocol Max HR: 137 % of PM: 90% Max BP: 191/89 Mets: 7.1 Test stopped due to: V tach No cp Frequent multifocal vent ectopy with PVCs, bigeminy, couplets, triplets and non-sustained multiform v-tach with longest run being apprx 20-25 beats Rare PAC 1.5-2mm of horizontal ST depression laterally. Apprx 0.5-1mm of horizontal and down sloping ST depression inferiorly EKG changes positive for ischemia with non-sustained multiform Vtach GXT only (no imaging) PCP contacted and pt escorted to ER Electronically signed by : Lakeisha Jennings MD 05/16/2024 01:37:51
== END 2024-05-13 23:59 | disposition home or self-care (01) ==
LOC: RT 09:47
PROVIDERS: PCP Family Medicine; Visit Provider Family Medicine
DX: R07.9 Chest pain, unspecified (principal)
CPT/HCPCS: 93017; 93018

== ENCOUNTER 2024-05-13 10:49 | Emergency (ER) | payer BC, MEDICARE, SELFPAY ==
[2024-05-13] VITALS (10 sets, daily range): BP systolic 126–155; BP diastolic 77–105; PULSE 68–80; RESP 12–21; TEMP 36.8–36.9; O2SAT 92–97; BMI 25.7
--- NOTE | 2024-05-13 10:54 | HMH.EDGENADL ---
Discharge Plan Disposition Patient Disposition: Home, Self-Care Condition: Good Prescriptions Prescriptions: New metoprolol tartrate 25 mg tablet 25 mg PO BID 15 Days Qty: 30 0RF aspirin 81 mg tablet,delayed release (DR/EC) 81 mg PO DAILY 14 Days Qty: 14 0RF No Action omeprazole 40 mg capsule,delayed release(DR/EC) 40 mg PO DAILY allopurinol 300 mg tablet 300 mg PO DAILY irbesartan 300 MG tablet 300 mg PO DAILY tadalafil 10 mg Tablet 10 mg PO DAILY PRN (Reason: .) Rx Instructions: administer approximately 30min before sexual activity; do not use more than 1 dose per 24hrs dapaglifloz propaned-metformin [Xigduo XR] 10-1,000 mg tablet, IR - ER, biphasic 24hr 1 tab PO DAILY azithromycin [Zithromax Z-Dieudonne] 250 mg tablet See Rx Instructions .ROUTE .COMPLEX 5 Days Qty: 6 0RF Rx Instructions: For 250 mg dose pack: take 500 mg today (day 1), then 250 mg for 4 days (days 2-5) methylprednisolone [Medrol (Dieudonne)] 4 mg tablets,dose pack See Rx Instructions .Route .COMPLEX 6 Days Qty: 21 0RF Rx Instructions: taper pack; guaifenesin [Mucinex] 600 mg tablet extended release 12hr 600 - 1,200 mg PO BID PRN (Reason: cough) Qty: 20 0RF Referrals Follow up/Referrals: Blaine Nichols MD [Primary Care Provider] - See instructions Activity Restrictions/Add. Instructions Additional Instructions/Restrictions: As we discussed, I wrote 2 prescriptions for medications to take based off of the boat loader at [facility] recommendations. Please follow-up with a boat loader for further testing. Please return with any new or worsening symptoms. Clinical Impressions Clinical Impression: Wide-complex tachycardia Print Language Print Language: Sami Discharge ED Provider: Russel Manriquez General Adult HPI General Chief complaint: Recheck/Abnormal Lab/Rx Stated complaint: needs work up for heart Time Seen by Provider: 05/13/24 10:54 History of Present Illness HPI narrative: The patient presents with a chief complaint of pain in the center of his back when swallowing, especially food, for the past three to four weeks. The pain is not related to physical activity, such as walking up a flight of stairs. 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 The patient underwent a stress test as recommended by his family physician, Dr. Nichols, to rule out heart issues. During the stress test, the patient felt great and was not informed of any issues until after the test. The patient denies any lightheadedness or chest discomfort during the stress test. The patient's current medications include metformin, allopurinol, irbesartan, and J-duo (a combination of metformin and Farxiga). He has no known personal history of heart problems but reports that his father before age 64 due to CF and had a 15-year history of poorly controlled diabetes. The patient's blood pressure was checked during the stress test and was reported as normal. He denies any pain or lightheadedness during the abnormal heart rhythms observed during the stress test. The patient describes himself as extremely active and reports feeling great during the stress test, even when hitting the incline and speeding up. He mentions being shocked when informed about the abnormal findings, as he had not experienced any symptoms during the test. The patient states that he was not informed of any issues while performing the stress test and only learned about the concerns afterward when called back to speak with the doctor. Please note that above description of symptoms, in this electronic medical record under categorization of recalled from ER triage doctor by RN are reflective of an initial nursing assessment, however, is not reflective of my full history and physical exam that was personally taken and clarified. Consequentially, this preceding description of symptoms, which may include the patient's categorized chief complaint in the EMR, do not reflect my personal clinical impression, and the ultimate description of history of present illness and patient stated complaints should be deferred to this section of the note. Unless stated otherwise or congruent with this section of the note, additional signs, symptoms, or incongruence should be interpreted as inaccurate with my clinical impression. Related Data Home Medications ?Medication ?Instructions ?Recorded ?Confirmed allopurinol 300 mg tablet 300 mg PO DAILY GOUT 11/22/19 03/08/24 omeprazole 40 mg capsule,delayed 40 mg PO DAILY GERD 11/22/19 03/08/24 release irbesartan 300 mg tablet 300 mg PO DAILY HTN 01/02/22 03/08/24 dapagliflozin propaned 10 1 tab PO DAILY 03/08/24 03/08/24 mg-metformin ER 1,000 mg tablet,ext rel 24hr (Xigduo XR) tadalafil 10 mg tablet 10 mg PO DAILY PRN . 03/08/24 03/08/24 Previous Rx's ?Medication ?Instructions ?Recorded azithromycin 250 mg tablet See Rx Instructions PO .COMPLEX 5 03/08/24 (Zithromax Z-Dieudonne) days #6 tabs guaifenesin 600 mg tablet, 600 - 1,200 mg (1 - 2 x 600 mg) PO 03/08/24 extended release 12 hr (Mucinex) BID PRN cough #20 tabs methylprednisolone 4 mg tablets in See Rx Instructions .Route 03/08/24 a dose pack (Medrol (Dieudonne)) .COMPLEX 6 days #21 tabs aspirin 81 mg tablet,delayed 81 mg PO DAILY 14 days #14 tabs 05/13/24 release metoprolol tartrate 25 mg tablet 25 mg PO BID 15 days #30 tabs 05/13/24 Allergies Allergy/AdvReac Type Severity Reaction Status Date / Time No Known Allergies Allergy Verified 03/03/23 09:20 [facility] Disclaimer: The information contained in this section may have been updated after the patient was seen, as this information can be updated by other users. 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 , [employer]) Cancer GERD (gastroesophageal reflux disease) Hearing loss HTN (hypertension), benign Right ear impacted cerumen T2DM (type 2 diabetes mellitus) Tinnitus Surgical History , [employer]) History of cholecystectomy History of lumbar fusion Family History , [employer]ER) Diabetes Coronary artery disease Hypertension Social History Smoking Status: Never smoker alcohol intake: never substance use type: denies use current occupational status: retired Travel in the last 8 weeks: Inside the [place] household members: significant other housing: house caffeine: Yes Other 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 Have you received the Flu Vaccine for this season: Yes Have you received the Pneumonia Vaccine: No ROS Obtained: Yes other As per HPI Physical Exam General General appearance: alert and in no apparent distress Head Head exam: atraumatic and normocephalic Eye Eye exam: Present normal appearance Neck Neck exam: Present normal inspection Chest Chest inspection: Present normal inspection and symmetric chest wall rise Respiratory Respiratory exam: Present normal lung sounds bilaterally; Absent respiratory distress Cardiovascular Cardiovascular exam: Present regular rate and normal rhythm Abdominal Exam Abdominal exam: Present soft Neurological Exam Neurological exam: Present alert and oriented X3 Psychiatric Psychiatric exam: Present normal affect and normal mood Skin Skin exam: Present warm and dry Medical Decision Making Medical Records Medical records reviewed: Yes I reviewed the patient's medical records. Screening: Per USPSTF and CDC recommendations, given the prevalence of disease in our region, it is our hospital?s policy to screen for HIV and viral Hepatitis for all patients aged 18 and over and those with ongoing risk factors. [place] Inquiry Pt receiving controlled substance: No Vital Signs: 05/13/24 10:50 05/13/24 11:00 05/13/24 12:00 Temperature 98.4 F Temperature Source Oral Pulse Rate 78 77 Pulse Rate [Left Radial] 80 Respiratory Rate 18 12 16 Blood Pressure 135/85 155/105 H Blood Pressure [Right Arm] 135/95 H Blood Pressure Mean 107 Blood Pressure Mean [Right Arm] 108 Blood Pressure Source [Right Arm] Automatic Cuff Blood Pressure Position [Right Arm] Sitting 02 Sat by Pulse Oximetry 95 96 92 L Oxygen Delivery Method Room Air Room Air 05/13/24 12:02 05/13/24 12:30 05/13/24 13:00 Temperature Temperature Source Pulse Rate 68 68 Pulse Rate [Left Radial] Respiratory Rate 14 12 12 Blood Pressure 137/85 128/84 126/77 Blood Pressure [Right Arm] Blood Pressure Mean 101 Blood Pressure Mean [Right Arm] Blood Pressure Source [Right Arm] Blood Pressure Position [Right Arm] 02 Sat by Pulse Oximetry 92 L 96 Oxygen Delivery Method Room Air Room Air 05/13/24 13:30 05/13/24 14:00 05/13/24 14:30 Temperature Temperature Source Pulse Rate 70 72 73 Pulse Rate [Left Radial] Respiratory Rate 12 21 Blood Pressure 133/91 H 141/86 H 137/86 Blood Pressure [Right Arm] Blood Pressure Mean 102 Blood Pressure Mean [Right Arm] Blood Pressure Source [Right Arm] Blood Pressure Position [Right Arm] 02 Sat by Pulse Oximetry 97 96 97 Oxygen Delivery Method Room Air Room Air Room Air 05/13/24 15:11 Temperature 98.2 F Temperature Source Pulse Rate 72 Pulse Rate [Left Radial] Respiratory Rate 20 Blood Pressure 141/78 H Blood Pressure [Right Arm] Blood Pressure Mean Blood Pressure Mean [Right Arm] Blood Pressure Source [Right Arm] Blood Pressure Position [Right Arm] 02 Sat by Pulse Oximetry Oxygen Delivery Method Room Air Lab Data Lab Results 05/13/24 11:00: WBC 7.3, RBC 5.26, Hgb 15.8, Hct 48.8, MCV 92.7, MCH 30.0, MCHC 32.3, RDW 15.5, Plt Count 175, MPV 7.6, Neut % (Auto) 81.4 H, Lymph % (Auto) 10.8, [place] % (Auto) 6.6, Eos % (Auto) 0.5, Baso % (Auto) 0.7, Neut # (Auto) 6.0, Lymph # (Auto) 0.8, [place] # (Auto) 0.5, Eos # (Auto) 0.0, Baso # (Auto) 0.1, Sodium 143, Potassium 4.1, Chloride 105, Carbon Dioxide 26, Anion Gap 16.1 H, BUN 24 H, Creatinine 1.00, Estimated Creat Clear 89, Estimated GFR 74, Est GFR ( Amer) 90, Glucose 175 H, Calcium 9.4, Magnesium 2.2, Total Bilirubin 1.0, AST 45, ALT 43, Alkaline Phosphatase 68, Troponin I 0.01, NT-Pro-B Natriuret Pep 45.9, Total Protein 8.5 H, Albumin 5.0, Globulin 3.5 H, Albumin/Globulin Ratio 1.4, Hepatitis C Antibody Non reactive, HIV 1&2 Antibody Rapid Nonreactive 05/13/24 13:42: Troponin I 0.02 05/13/24 11:00 05/13/24 11:00 Orders (Tests/Meds): ORDERS Category Date Time Status XR chest 2V Stat Exams 05/13/24 11:07 Completed BNP [NT Pro Brain Natriuretic Pep.] Stat Lab 05/13/24 11:00 Completed CBC w/Auto Diff [Complete Blood Count Auto Diff] Stat Lab 05/13/24 11:00 Completed CMP [Comprehensive Metabolic Panel] Stat Lab 05/13/24 11:00 Completed HIV (1&2) Antibody Rapid Stat Lab 05/13/24 11:00 Completed Hep C Ab with Reflex to RNA Stat Lab 05/13/24 11:00 Completed MAG [Magnesium] Stat Lab 05/13/24 11:00 Completed Troponin I Q3H Lab 05/13/24 11:00 Completed Troponin I Q3H Lab 05/13/24 13:42 Completed Medical Decision Narrative: Patient with history and exam per above presenting for evaluation of abnormal findings on EKG during cardiac stress test Diagnoses considered include ACS, electrolyte abnormality, structural disease, arrhythmia, among others ED workup and treatment included: ORDERS Category Date Time Status XR chest 2V Stat Exams 05/13/24 11:07 Completed BNP [NT Pro Brain Natriuretic Pep.] Stat Lab 05/13/24 11:00 Completed CBC w/Auto Diff [Complete Blood Count Auto Diff] Stat Lab 05/13/24 11:00 Completed CMP [Comprehensive Metabolic Panel] Stat Lab 05/13/24 11:00 Completed HIV (1&2) Antibody Rapid Stat Lab 05/13/24 11:00 Completed Hep C Ab with Reflex to RNA Stat Lab 05/13/24 11:00 Completed MAG [Magnesium] Stat Lab 05/13/24 11:00 Completed Troponin I Q3H Lab 05/13/24 11:00 Completed Troponin I Q3H Lab 05/13/24 13:42 Completed Labs were independently interpreted by me, significant for no acute findings Imaging was independently visualized and interpreted by me, significant for no acute findings Please refer to radiology report for full details. I discussed this case with boat loader on-call at outside facility. After discussion of history and workup, he is stable for discharge at this time. He will follow-up on an outpatient basis with boat loader. He and family members at bedside expressed comfort with this plan. I discussed my clinical impression with patient and answered all questions. At this time, the evidence for any other entities in the differential is insufficient to warrant any further testing or ED observation. This was explained to the patient. The patient was advised that persistent or worsening symptoms require further evaluation. Critical Care Critical Care Time Critical Care Time: No
--- NOTE | 2024-05-13 10:55 | ECG_ITS ---
APPROVED REPORT Exam: Resting ECG HR:81 bpm ECG Measurements Heart Rate 81 AXES MN 329 P 46 QRSd 112 QRS -24 QT 358 T 55 QTc 395 Conclusion SINUS RHYTHM WITH FIRST DEGREE AV BLOCK BORDERLINE LEFT AXIS DEVIATION [QRS AXIS < -20] MODERATE INTRAVENTRICULAR CONDUCTION DELAY [110+ ms QRS DURATION] Electronically signed by : LALITO VELAZQUEZ, 05/15/2024 19:46:05
--- NOTE | 2024-05-13 11:07 | XR_ITS ---
PROCEDURE INFORMATION: Exam: XR Chest Exam date and time: 05/13/2024 11:20 AM Age: 68 years old Clinical indication: Other: Chest pain; Additional info: Chest pain. Abnormal stress test. TECHNIQUE: Imaging protocol: Radiologic exam of the chest. Views: 2 views. COMPARISON: No relevant prior studies available. FINDINGS: Lungs: Unremarkable. No consolidation. Pleural spaces: Unremarkable. No pleural effusion. No pneumothorax. Heart/Mediastinum: Unremarkable. No cardiomegaly. Vasculature: The aorta is calcified and tortuous. Bones/joints: Unremarkable. Organs: Cholecystectomy clips are seen. IMPRESSION: No acute findings.
[2024-05-13 11:18] LABS: Basophils # 0.1 K/mm3 (0-0.2); Basophils % 0.7 % (0.1-2.0); Chloride 105 mmol/L (98-107); Eosinophils % 0.5 % (0.1-12.0); Hematocrit 48.8 % (42.0-52.0); Hemoglobin 15.8 g/dL (14.1-18.0); Lymphocytes # 0.8 K/mm3 (0.7-4.5); Lymphocytes % 10.8 % (10-50); Mean Corpuscular HGB Conc 32.3 g/dL (31.8-35.4); Mean Corpuscular Volume 92.7 fl (80-94); Mean Platelet Volume 7.6 fl (7.4-10.4); Monocytes # 0.5 K/mm3 (0.1-1.0); Monocytes % 6.6 % (1.7-9.3); Neutrophils % 81.4 % (37.0-80.0); Platelet Count 175 K/mm3 (142-424); Potassium 4.1 mmoL/L (3.5-5.1); Red Blood Count 5.26 M/mm3 (4.60-6.20); Red Cell Distribution Width 15.5 % (11.5-17.5); Sodium 143 mmol/L (136-145); White Blood Count 7.3 K/mm3 (4.8-10.8)
[2024-05-13 11:20] LABS: Alanine Aminotransferase 43 U/L (12-78); Alkaline Phosphatase 68 U/L (38-126); Anion Gap 16.1 mEq/L (5-15); Aspartate Amino Transferase 45 U/L (17-59); Blood Urea Nitrogen 24 mg/dl (9-20); Carbon Dioxide 26 mmol/L (22.0-30.0); Creatinine Clearance Estimated 89 mL/min (50-200); Estimated Glomerular Filt Rate 74 ml/min (>60); GFR (African American) 90 ML/MIN (>60)
[2024-05-13 11:21] LABS: Albumin/Globulin Ratio 1.4 (1.1-1.8); Calcium 9.4 mg/dl (8.4-10.2); Globulin 3.5 g/dL (1.3-3.2); Glucose 175 mg/dl (74-100); Magnesium 2.2 mg/dl (1.6-2.3); Total Protein,Serum 8.5 g/dl (6.3-8.2)
[2024-05-13 11:30] LABS: NT Pro Brain Natriuretic Pep. 45.9 pg/mL (0-125)
[2024-05-13 11:42] LABS: Troponin I 0.01 ng/ml (0.00-0.034)
[2024-05-13 14:09] LABS: Troponin I 0.02 ng/ml (0.00-0.034)
[2024-05-13 14:39] LABS: HIV (1&2) Antibody Rapid NONREACTIVE (NONREACTIVE)
--- NOTE | 2024-05-13 14:42 | PC.NURSE ---
CALLED [facility] CARDIOLOGY OFFICE TO SCHEDULED A FOLLOW UP QASIM FOR ThursdayMAY 18@ 10:00 BUT IN ORDER FOR ER MD TO SPEAK TO AN BLOOD SPLATTER ANALYST AT THIS TIME ON PT TO CALL TRANSFER CENTER AND [facility] [employer] FORMER OPERATOR BLOOD SPLATTER ANALYST AT THIS TIME..
--- NOTE | 2024-05-13 14:56 | PC.NURSE ---
SPEAKING WITH QUALITY CONTROL SUPERVISOR FROM [facility]
[2024-05-14 12:12] LABS: HCV Ab Non Reactive (Non Reactive)
== END 2024-05-13 15:12 | disposition home or self-care (01) ==
PROVIDERS: Emergency Provider Emergency Medicine; PCP Family Medicine
DX: R00.0 Tachycardia, unspecified (principal)
CPT/HCPCS: 71046; 80053; 83735; 83880; 84484; 85025; 86803; 87389; 93005; 99284